=== PATIENT | male | born 1970 | race African-American/Black ===

== ENCOUNTER 2017-03-20 14:15 | Emergency (ER) | payer OTHER ==
[~2017-03-20] VITALS: Ht 182.9 cm; Wt 87.0 kg
[~2017-03-20 14:15] MED LIST: HYDR12.58; VALA100057 PO
[2017-03-20 14:18] VITALS: Ht 182.9 cm; Wt 87.0 kg
[2017-03-20] MEDS ORDERED: PRED20TA PO (17:05)
[2017-03-20] MEDS ORDERED: NAPR-260 PO (17:05)
[2017-03-20] MEDS ORDERED: HYDR-906 PO (17:05)
[2017-03-20 17:39] VITALS: BP 135/88; PULSE 66; RESP 18; TEMP 98.7
--- NOTE | 2017-03-20 23:28 | ERD ---
ER Documentation Chief Complaint Chief Complaint back pain since friday , no trauma HPI Patient is a 46-year-old male presenting to the emergency department with complaints of bilateral low back pain intermittently for the past 3 days. He denies any trauma. He used heat and it helped. He has been ambulating okay. He took 800 mg ibuprofen with relief of pain. He has never had this in the past. He denies radiation of symptoms. Pain is moderate, constant, worse with movement. He denies loss of bowel or bladder function. He denies fevers or other symptoms currently. ROS All systems reviewed and are negative except as per history of present illness. Medications Home Meds Active Scripts Naproxen* (Naprosyn*) 500 Mg Tablet, 500 MG PO BID Y for PAIN AND/OR INFLAMMATION, #20 TAB Prov:ALEXANDRO PRETTY PA-C 03/20/17 Hydrocodone/Acetaminophen ([place] 5-325 Tablet) 1 Each Tablet, 1 TAB PO Q6H Y for PAIN, #10 TAB Prov:ALEXANDRO PRETTY PA-C 03/20/17 Prednisone* (Prednisone*) 20 Mg Tab, 40 MG PO DAILY for 5 Days, #10 TAB Prov:ALEXANDRO PRETTY PA-C 03/20/17 Valacyclovir Hcl* (Valtrex*) 1,000 Mg Tablet, 1000 MG PO TID for 7 Days Prov:ALEXANDRO SOL 11/14/14 Reported Medications Hydrochlorothiazide* (Hydrochlorothiazide*) 12.5 Mg Tablet 11/14/14 Allergies Allergies: Coded Allergies: Penicillins (Verified Allergy, Unknown, 11/14/14) PMhx/Soc Hx Cardiac Disorders: Yes (htn, high cholesterol) Hx Miscellaneous Medical Probl: Yes (herpes type 1) Hx Alcohol Use: Yes (social) Hx Substance Use: Yes (occasional weed) Hx Tobacco Use: Yes (social) Smoking Status: Current some day smoker Physical Exam Vitals Vital Signs Date Time Temp Pulse Resp B/P Pulse Ox O2 Delivery O2 Flow Rate FiO2 03/20/17 17:39 98.7 66 18 135/88 98 Room Air 03/20/17 14:18 98.2 74 18 151/94 98 Physical Exam Const: Nontoxic, well-appearing male in no acute distress. Head: Atraumatic Eyes: Normal Conjunctiva ENT: Normal External Ears, Nose and Mouth. Neck: Full range of motion..~ No meningismus. Skin: No petechiae or rashes Back: No midline or flank tenderness. Negative straight leg raise test bilaterally. Ext: No cyanosis, or edema Neur: Awake and alert Psych: Normal Mood and Affect Procedures/MDM Patient is a 46-year-old male presenting to the emergency department with complaints of low back pain. History and physical examination is consistent with a lumbar strain are likely musculoskeletal in etiology. Low suspicion for cauda equina, epidural abscess, or other emergencies. Patient was stable for outpatient management with prescriptions for prednisone, [place] Val[place], and naproxen. He agreed with the discharge plan a diagnosis. No evidence of life-threatening pathology at time of discharge. Pt/family in agreement with discharge plan/diagnosis. Pt/family advised to return immediately with any new or worsening symptoms. Follow-up with primary care physician within the next 1-2 days. Disclaimer: Inadvertent spelling and grammatical errors are likely due to EHR/ dictation software use and do not reflect on the overall quality of patient care. Also, please note that the electronic time recorded on this note does not necessarily reflect the actual time of the patient encounter. Departure Diagnosis: Primary Impression: Back pain Back pain location: low back pain Chronicity: unspecified Back pain laterality: unspecified Sciatica presence: unspecified whether sciatica present Qualified Code: M54.5 - Low back pain, unspecified back pain laterality, unspecified chronicity, with sciatica presence unspecified Condition: Fair Patient Instructions: Back Pain (Acute Or Chronic) Additional Instructions: Call your primary care doctor TOMORROW for an appointment during the next 1-2 days.See the doctor sooner or return here if your condition worsens before your appointment time. ALEXANDRO PRETTY PA-C Mar 20, 2017 23:28
== END 2017-03-20 17:40 | disposition home or self-care (01) ==
LOC: FTE 14:15
DX: M54.5 Low back pain (principal); F17.210 Nicotine dependence, cigarettes, uncomplicated; I10 Essential (primary) hypertension
CPT/HCPCS: 99284